=== PATIENT | male | born 1955 | race Native Hawaiian/Other Pacific Islander ===

== ENCOUNTER 2019-07-16 07:59 | Outpatient (CLI) | payer OTHER ==
[2019-07-16 09:02] LABS: PLATELET COUNT 231 K/uL (142-355)
== END 2019-07-16 21:44 | disposition home or self-care (01) ==
LOC: CT 07:59
PROVIDERS: Nurse Practitioner Family
DX: R10.84 Generalized abdominal pain (principal)
CPT/HCPCS: 36415; 80053; 82150; 83690; 85027; Q9963

== ENCOUNTER 2019-11-03 10:49 | Outpatient (CLI) | payer OTHER | END 2019-11-03 19:33 | disposition home or self-care (01) | LOC: US 10:49 | DX: N50.819 Testicular pain, unspecified (principal) ==